=== PATIENT | female | born 1975 | race Caucasian/White ===

== ENCOUNTER 2022-05-08 09:38 | Emergency (ER) | payer MEDICAID, SELFPAY ==
--- NOTE | 2022-05-08 09:53 | ED.OVERDOSE ---
HPI - Overdose General Chief Complaint: Overdose Stated Complaint: unresponsive Time Seen by Provider: 05/08/22 09:39 Source: patient and EMS Mode of arrival: EMS Limitations: no limitations History of Present Illness HPI Narrative: 46-year-old female came in after was found unresponsive after using heroin. Patient admitted to use couple bags of heroin by sniffing, patient has not used heroin for many years and been sober and today was her 1st time after long time, patient was found unresponsive by her family called EMS initially CPR was shortly started before EMS arrival then was stopped, 4 mg of total Narcan was used intranasally and patient regained consciousness shortly after. On arrival patient is awake, alert, stable vital signs, patient declined SI or HI or hallucination. Related Data Allergies Allergy/AdvReac Type Severity Reaction Status Date / Time No Known Allergies Allergy Unverified 04/10/20 15:47 Review of Systems Review of Systems: All other systems are reviewed and are negative Constitutional: Reports as per HPI and Reports no additional constitutional complaints Eyes: Reports as per HPI and Reports no additional eye complaints Reports system reviewed and no additional complaints, except as documented Cardiovascular: Reports as per HPI and Reports no additional cardiovascular complaints Respiratory: Reports as per HPI and Reports no additional respiratory complaints Gastrointestinal: Reports as per HPI and Reports no additional gastrointestinal complaints Genitourinary: Reports no additional female genitourinary complaints Musculoskeletal: Reports no additional musculoskeletal complaints Skin/Breast: Reports system reviewed and no additional complaints, except as docu Psychiatric: Reports no additional psychiatric complaints Endocrine: Reports no additional endocrine complaints Hematologic/Lymphatic: Reports no additional hematologic/lymphatic complaints Allergic/Immunologic: Reports no additional allergic/immunologic complaints Reports system reviewed and no additional complaints, except as documented and Reports Abnormal speech present [facility] Social History Social History Patient Tobacco Use Status: Current everyday Tobacco user Advance Directives: No Advance Directives Information Provided: No Patient : No Physical Exam Vital Signs: Vital Signs: Last Vital Signs Temp 97.6 F 05/08/22 11:09 Pulse 78 05/08/22 11:09 Resp 16 05/08/22 11:09 BP 114/81 05/08/22 11:09 Pulse Ox 97 05/08/22 11:09 O2 Del Method 05/08/22 11:09 BMI result Body Mass Index 20.9 Vital signs have been reviewed as appeared to be correct. Blood pressure normal. Heart rate normal. Respiration rate normal. Temperature normal. Oxygen saturation normal. Appearance: Alert. Oriented X3. No acute distress. Head: Normal external exam. Normocephalic. Atraumatic. No Menjivar signs noted. No raccoon eyes noted Eyes: PERRLA. EOMI. Conjunctiva and sclera normal. Eyelids normal. ENT: TM's Normal. Pharynx normal. Uvula midline. Moist mucous membranes. No trismus noted. No drooling noted. No muffled voice noted. Neck: Normal inspection. Neck supple. FROM. No adenopathy. Thyroid Normal. No meningeal signs. No neck mass noted. CVS: Normal heart rate and rhythm. Heart sound normal. No murmurs noted. Pulses normal throughout. Respiratory: No respiratory distress. Painless inspiration. Breath sounds normal. No wheezes/rales/rhonchi noted. Chest nontender. No accessory muscle usage noted or decreased air movement noted. Abdomen: Soft and nontender. Bowel sounds normal in all 4 quadrants. No distention noted. No organomegaly noted. No visible injury noted. Back: No CVA tenderness. Full range of motion noted. Skin: Skin warm and dry. Normal skin color. Normal skin turgor. No rashes/lesions/lacerations noted. Extremities: No lower extremity edema. Extremities exhibit normal range of motion. Extremities nontender. Neuro: Oriented X 3. Cranial nerve exam: II-XII are grossly intact No motor deficit. No sensory deficit. Reflexes normal. Course Course Course Narrative: 46-year-old female brought in after overdosed on heroin non intentionally, no SI or HI. Patient now is awake, alert, oriented will discharge with Narcan to take home and a care team evaluation. Discharge Plan Discharge Clinical Impression: Substance abuse, Overdose Patient Disposition: Home, Self-Care Instructions: Polysubstance Abuse (ED)
[2022-05-08 09:55] VITALS: BP 105/69; BP 115/80; PULSE 63; PULSE 92; RESP 18; TEMP 36.7; O2SAT 100; O2SAT 98; BMI 20.9
--- OUTSIDE RECORDS SUMMARY | 2022-05-08 10:26 | XMS_ITS | Continuity of Care Document ---
:1975 Author Organization [facility] Address [address] [facility], 3rd Floor, [address] [place] [address]- Care Team Providers Name Role Phone Josh Boone MD Primary Care Physician Encounter [facility] Date(s): 09/26/19 - 10/06/19 [facility] [address], [address], [address] [place] [address]- [facility] Attending Physician: Lian Toledo Admitting Physician: Lian Toledo Referring Physician: AdmtrLian Allergies, Adverse Reactions, Alerts Substance Reaction Severity Status NKA Active Immunizations Given and Recorded Vaccine Date Status Refusal Reason tetanus-diphtheria toxoids (Td) 06/08/08 Given Not Given Vaccine Date Status Refusal Reason influenza virus vaccine, inactivated 06/16/19 Not Given Parent Or Guardian Refuses Medications acetaminophen 325 mg oral tablet 650 mg, 2, tablet, By Mouth, Every 6 hours, PRN, Refills 0, Maintenance, Pain , Moderate, 06/27/19 10:32:58 EST Start Date: 06/27/19 Status: Orderedbuprenorphine-naloxone 4 mg-1 mg sublingual film Sublingual, 2 times a day, 0 Refills, Maintenance, 06/27/19 10:32:42 EST, Film Start Date: 06/27/19 Status: OrderedFioricet Tablet 1 tablet, By Mouth, Every 4 hours, PRN Headache, 0 Refills, Maintenance, 06/27/19 10:33:00 EST, Tablet Start Date: 06/27/19 Status: Orderedfolic acid 1 mg oral tablet 1 mg, 1, tablet, By Mouth, Daily, Refills 0, Maintenance, 06/27/19 10:33:27 EST Start Date: 06/27/19 Status: OrderedLidoderm 5% film Topically, Daily, apply to area of pain in AM and remove 12 hrs later in PM., 0 Refills, Maintenance, 07/26/19 12:31:00 EST Start Date: 07/26/19 Status: Orderedthiamine 100 mg oral tablet 100 mg, 1, tablet, By Mouth, Daily, Refills 0, Maintenance, 06/27/19 10:34:02 EST Start Date: 06/27/19 Status: Ordered Problem List Condition Effective Dates Status Health Status Informant Alcohol dependence(Confirmed) Active Cellulitis(Confirmed) Active Episodic mood disorder(Confirmed) Active History of Heroin abuse, on Active suboxone(Confirmed) Hepatitis C(Confirmed) Active Social History Social History Type Response Smoking Status Former smoker, quit more dior n 30 days ago; Other: on patches; entered on: 08/08/19 Sex
--- OUTSIDE RECORDS SUMMARY | 2022-05-08 10:26 | XMS_ITS | Continuity of Care Document ---
:1975 Author Organization [facility] Address [address] [place] [address]- Care Team Providers Name Role Phone Josh Boone MD Primary Care Physician Encounter [facility] [id number] Date(s): 11/11/21 - 12/11/21 [facility] [address] [place] [address]- Allergies, Adverse Reactions, Alerts No Known Allergies Immunizations Given and Recorded Vaccine Date Status Refusal Reason tetanus-diphtheria toxoids (Td) 06/08/08 Given Not Given Vaccine Date Status Refusal Reason influenza virus vaccine, inactivated 06/16/19 Not Given Parent Or Guardian Refuses Medications amoxicillin 500 mg oral tablet 4 tablet = 2,000 mg, By Mouth, Once, 30 to 60 minutes prior to the procedure, # 4 tablet, 0 Refills,Soft Stop, 08/14/21 12:25:00 EST, Tablet, [id number], 180, cm, 06/09/21 13:41:00 EST, Height, 85.4, kg, 11/03/20 10:44:00 EDT, Dry Weight Start Date: 08/14/21 Status: Orderedamoxicillin 500 mg oral tablet 4 tablet = 2,000 mg, By Mouth, Once, 30 to 60 minutes prior to the procedure, # 4 tablet, 0 Refills,Soft Stop, 11/12/21 11:05:00 EDT, Tablet, [facility]/pharm[facility] #[id number], 180, cm, 06/09/21 13:41:00 EST, Height, 85.4, kg, 11/03/20 10:44:00 EDT, Dry Weight Start Date: 11/12/21 Status: Orderedbuprenorphine-naloxone 4 mg-1 mg sublingual film Sublingual, 2 times a day, 0 Refills, Maintenance, 06/27/19 10:32:42 EST, Film Start Date: 06/27/19 Status: Ordered Problem List Condition Effective Dates Status Health Status Informant Alcohol dependence(Confirmed) Active Cellulitis(Confirmed) Active Hx Stroke(Confirmed) Active History of Heroin abuse, on Active suboxone(Confirmed) Hepatitis C(Confirmed) Active Social History Social History Type Response Smoking Status Former smoker, quit more dior n 30 days ago entered on: 09/30/20 Sex
--- OUTSIDE RECORDS SUMMARY | 2022-05-08 10:26 | XMS_ITS | Continuity of Care Document ---
:1975 Author Organization [facility] Address [address] [place] [address]- Care Team Providers Name Role Phone Josh Boone MD Primary Care Physician Encounter [facility] Date(s): 04/01/20 - 04/08/20 [facility] [address] [place] [address]- Encounter Diagnosis Infective endocarditis of aortic valve (Discharge Diagnosis) - 04/01/20 SAH (subarachnoid hemorrhage) (Discharge Diagnosis) - 04/01/20 Attending Physician: Josh Boone MD Allergies, Adverse Reactions, Alerts Substance Reaction Severity [...] procedure, # 4 tablet, 0 Refills,Soft Stop, 03/28/20 8:23:00 EDT, Tablet, [id number], 180, cm, 03/20/20 10:17:00 EDT, Height,60, kg, 06/13/19 15:20:00 EST, Dry Weight Start Date: 03/28/20 Status: Orderedbuprenorphine-naloxone 4 mg-1 mg sublingual film Sublingual, 2 times a day, 0 Refills, Maintenance, 06/27/19 10:32:42 EST, Film Start Date: 06/27/19 Status: Ordered Problem List Condition Effective Dates Status Health Status Informant Alcohol dependence(Confirmed) Active Cellulitis(Confirmed) Active Episodic mood disorder(Confirmed) Active History of Heroin abuse, on Active suboxone(Confirmed) Hepatitis C(Confirmed) Active Diagnosis Diagnosis Type Effective Dates Health Clinical Infor mant Status Service Infective Discharge 04/01/20 endocarditis of Diagnosis aortic valve SAH (subarachnoid Discharge 04/01/20 hemorrhage) Diagnosis Vital Signs Most recent to oldest [Reference Range]: 1 Height 180 cm (04/01/20 3:24 PM) Weight 76.7 kg (04/01/20 3:24 PM) Oxygen Saturation [94-100 %] 98 % (04/01/20 3:24 PM) Pulse Rate [55-90 bpm] 55 bpm (04/01/20 3:24 PM) Body Mass Index [18.5-24.99] 23.67 (04/01/20 3:24 PM) Blood Pressure [90-138/55-84 mm Hg] 132/80 mm Hg (04/01/20 3:24 PM) Liters per Minute 0 L/min (04/01/20 3:24 PM) Mode of Delivery (Oxygen) Room air (04/01/20 3:24 PM) Blood pressure sites Arm, left (04/01/20 3:24 PM) Weight Obtained Via Standing scale (04/01/20 3:24 PM) Social History Social History Type Response Smoking Status Former smoker, quit more dior n 30 days ago; Previous treatment: Nicotine replacement entered on: 04/01/20 Sex
--- OUTSIDE RECORDS SUMMARY | 2022-05-08 10:26 | XMS_ITS | Continuity of Care Document ---
:1975 Author Organization [facility] Address [address] [place] [address]- Care Team Providers Name Role Phone Josh Boone MD Primary Care Phys[id number] Date(s): 11/29/19 - 12/06/19 [facility] [address] [place] [address]- [facility] Encounter Diagnosis Infective endocarditis of aortic valve (Discharge Diagnosis) - 11/29/19 SAH (subarachnoid hemorrhage) (Discharge Diagnosis) - 11/29/19 History of Heroin abuse, on suboxone (Discharge Diagnosis) - 11/29/19 Attending Physician: Josh Boone MD Allergies, Adverse [...] Clinical Infor mant Status Service Infective Discharge 11/29/19 endocarditis of Diagnosis aortic valve SAH (subarachnoid Discharge 11/29/19 hemorrhage) Diagnosis History of Heroin Discharge 11/29/19 abuse, on suboxone Diagnosis Social History Social History Type Response Smoking Status Former smoker, quit more dior n 30 days ago; Other: on patches; entered on: 08/08/19 Sex
--- OUTSIDE RECORDS SUMMARY | 2022-05-08 10:26 | XMS_ITS | Continuity of Care Document ---
:1975 Author Organization [facility] Address [address] [place] [address]- Care Team Providers Name Role Phone Josh Boone MD Primary Care Physician Encounter [facility] Date(s): 05/14/20 - 08/14/20 [facility] [address] [place], [place] [address] Attending Physician: Josh Boone MD Allergies, Adverse Reactions, Alerts Substance Reaction Severity Status NKA Active Immunizations Given and Recorded Vaccine Date Status Refusal Reason tetanus-diphtheria toxoids (Td) 06/08/08 Given Not Given Vaccine Date Status Refusal Reason influenza virus vaccine, inactivated 06/16/19 Not Given Parent Or Guardian Refuses Medications amoxicillin 500 mg oral tablet See Instructions, Take 4 tablets, by mouth, once, 30 to 60 minutes prior to the procedure, # 4 tablet, 0 Refills, Maintenance, 08/07/20 12:43:00 EST, Tablet, [facility]/pharmacy #[id number], Partial fill upon patient request if the prescription is for a schedule I... Start Date: 08/07/20 Status: Orderedamoxicillin 500 mg oral tablet 4 tablet = 2,000 mg, By Mouth, Once, 30 to 60 minutes prior to the procedure, # 4 tablet, 0 Refills,Soft Stop, 05/09/20 16:49:00 EDT, Tablet, [id number], 180, cm, 04/01/20 15:24:00 EDT, Height, 60, kg, 06/13/19 15:20:00 EST, Dry Weight Start Date: 05/09/20 Status: Orderedbuprenorphine-naloxone 4 mg-1 mg sublingual film Sublingual, 2 times a day, 0 Refills, Maintenance, 06/27/19 10:32:42 EST, Film Start Date: 12/4/19 Status: Ordered Problem List Condition Effective Dates Status Health Status Informant Alcohol dependence(Confirmed) Active Cellulitis(Confirmed) Active Episodic mood disorder(Confirmed) Active History of Heroin abuse, on Active suboxone(Confirmed) Hepatitis C(Confirmed) Active Social History Social History Type Response Smoking Status Former smoker, quit more dior n 30 days ago; Previous treatment: Nicotine replacement entered on: 04/01/20 Sex
--- OUTSIDE RECORDS SUMMARY | 2022-05-08 10:26 | XMS_ITS | Continuity of Care Document ---
:1975 Author Organization [employer] [facility] Address [address] [place] [address]- Care Team Providers Name Role Phone Josh Boone MD Primary Care Physician Encounter [facility] Date(s): 08/08/19 - 08/15/[address] [facility] [address] [place] [address]- [facility] Encounter Diagnosis Infective endocarditis of aortic valve (Discharge Diagnosis) - 08/08/19 SAH (subarachnoid hemorrhage) (Discharge Diagnosis) - 08/08/19 Streptococcus viridans infection (Discharge Diagnosis) - 08/08/19 History of Heroin abuse, on suboxone (Discharge Diagnosis) - 08/08/19 Alcohol dependence (Discharge Diagnosis) - 08/08/19 Tobacco abuse (Discharge Diagnosis) - 08/08/19 Attending Physician: Josh Boone MD Allergies, Adverse [...] 07/26/19 12:31:00 EST Start Date: 07/26/19 Status: OrderedNicotine = 14 mg, Topically, Daily, 0 Refills, Maintenance, 06/27/19 10:33:56 EST, Patch Start Date: 06/27/19 Status: Orderednicotine 21 mg/24 hr transdermal film, extended release 1 patch, Topically, Daily, for 14 days, Do not smoke when the patch is on, # 14 patch, 0 Refills, Acute 08/22/19 10:26:00 EST, 08/08/19 10:26:00 EST, Patch, [facility]/pharmacy #[id number], 1 patch Topically Daily,x14 days,Instr:Do not smoke when the patch is on,... Start Date: 08/08/19 Stop Date: 08/22/19 Status: Orderedthiamine 100 mg oral tablet 100 [...] Clinical Infor mant Status Service Infective Discharge 08/08/19 endocarditis of Diagnosis aortic valve SAH (subarachnoid Discharge 08/08/19 hemorrhage) Diagnosis Streptococcus Discharge 08/08/19 viridans infection Diagnosis History of Heroin Discharge 08/08/19 abuse, on suboxone Diagnosis Alcohol dependence Discharge 08/08/19 Diagnosis Tobacco abuse Discharge 08/08/19 Diagnosis Vital Signs Most recent to oldest [Reference Range]: 1 Height 180 cm (08/08/19 9:54 AM) Weight 67.8 kg (08/08/19 9:54 AM) Oxygen Saturation [94-100 %] 97 % (08/08/19 9:54 AM) Pulse Rate [55-90 bpm] 73 bpm (08/08/19 9:54 AM) Body Mass Index [18.5-24.99] 20.93 (08/08/19 9:54 AM) Blood Pressure [90-138/55-84 mm Hg] 100/70 mm Hg (08/08/19 9:54 AM) Liters per Minute 0 L/min (08/08/19 9:54 AM) Mode of Delivery (Oxygen) Room air (08/08/19 9:54 AM) Blood pressure sites Arm, right (08/08/19 9:54 AM) Weight Obtained Via Standing scale (08/08/19 9:54 AM) Social History Social History Type Response Smoking Status Former smoker, quit more dior n 30 days ago; Other: on patches; entered on: 08/08/19 Sex
--- OUTSIDE RECORDS SUMMARY | 2022-05-08 10:26 | XMS_ITS | Continuity of Care Document ---
:1975 Author Organization [facility] Address [address] [place] [address]- Care Team Providers Name Role Phone Josh Boone MD Primary Care Phys[id number] Date(s[facility] 01/12/20 - 05/01/20 [facility] [address] [place] [address]- [facility] Attending Physician: Josh Boone MD Allergies, Adverse [...]
--- OUTSIDE RECORDS SUMMARY | 2022-05-08 10:26 | XMS_ITS | Continuity of Care Document ---
:1975 Author Organization [facility] n Address [address] [address]- Care Team Providers Name Role Phone Josh Boone MD Primary Care Physician Encounter [facility] Date(s): 04/17/20 - 05/17/20 [facility] [address] [place] [address]- [facility] Attending Physician: Lian Toledo Admitting Physician: Lian [...]
--- OUTSIDE RECORDS SUMMARY | 2022-05-08 10:26 | XMS_ITS | Continuity of Care Document ---
:1975 Author Organization [facility] Address [address] [place] [address]- Care Team Providers Name Role Phone Josh Boone MD Primary Care Physician Encounter [facility] Date(s): 02/11/20 - 03/12/20 [facility] [address] [place] [address]- Allergies, Adverse Reactions, Alerts Substance Reaction Severity [...] 06/27/19 10:32:58 EST Start Date: 06/27/19 Status: Orderedamoxicillin 500 mg oral tablet 4 tablet = 2,000 mg, By Mouth, Once, 30 to 60 minutes prior to the procedure, # 4 tablet, 0 Refills,Soft Stop, 02/11/20 13:48:00 EDT, Tablet, [facility]/pharmacy #[id number], 180, cm, 09/26/19 16:36:00 EST, Height, 60, kg, 06/13/19 15:20:00 EST, Dry Weight Start Date: 02/11/20 Status: Orderedbuprenorphine-naloxone 4 mg-1 mg sublingual film [...]
--- OUTSIDE RECORDS SUMMARY | 2022-05-08 10:26 | XMS_ITS | Continuity of Care Document ---
:1975 Author Organization [facility] n Address [address] [address]- Care Team Providers Name Role Phone oJsh Boone MD Primary Care Physician Encounter [facility] ACCT R [id number] Date(s): 03/20/20 - 05/03/20 [facility] [address] [address] [place] Attending Physician: Gunnar BRANTLEY, Adrian Longoria Admitting Physician: Gunnar BRANTLEY, Adrian Longoria Referring Physician: Gunnar BRANTLEY, Adrian Longoria Allergies, Adverse Reactions, Alerts Substance Reaction Severity [...]
--- OUTSIDE RECORDS SUMMARY | 2022-05-08 10:26 | XMS_ITS | Continuity of Care Document ---
:1975 Author Organization [facility] [place] Address [address] [place] [address]- Care Team Providers Name Role Phone Josh Boone MD Primary Care Physician Encounter [facility] Date(s): 03/20/20 - 04/19/[address] [address] [facility] Attending Physician: Lian Toledo Admitting Physician: Lian Toledo Referring Physician: Lian Toledo Allergies, Adverse Reactions, Alerts Substance Reaction Severity [...]
--- OUTSIDE RECORDS SUMMARY | 2022-05-08 10:26 | XMS_ITS | Continuity of Care Document ---
:1975 Author Organization [facility] Address [address] [place] [address]- Care Team Providers Name Role Phone Josh Boone MD Primary Care Physician Encounter [facility] NBR [id number] Date(s): 11/29/19 - 12/29/19 [facility] [address] [place] [address]- [facility] Attending Physician: Lian Toledo Admitting [...]
--- OUTSIDE RECORDS SUMMARY | 2022-05-08 10:26 | XMS_ITS | Continuity of Care Document ---
:1975 Author Organization [facility] n Address [address] [address]- Care Team Providers Name Role Phone Josh Boone MD Primary Care Physician Encounter [facility] ACCT R [id number] Date(s): 04/17/20 - 04/24/20 [facility] [address] [address]- [place] Attending Physician: Gunnar BRANTLEY, Adrian Longoria Admitting Physician: Gunnra BRANTLEY, Adrian Longoria Referring Physician: Gunnar BRANTLEY, [...]
--- OUTSIDE RECORDS SUMMARY | 2022-05-08 10:26 | XMS_ITS | Continuity of Care Document ---
:1975 Author Organization [employer] [facility] Address [address] [place] [address]- Care Team Providers Name Role Phone Josh Boone MD Primary Care Physician Encounter [facility] Date(s): 06/29/19 - 08/31/19 [facility] [address] [place] [address]- [facility] Attending Physician: Josh Boone MD Allergies, Adverse [...] 07/26/19 12:31:00 EST Start Date: 07/26/19 Status: Orderednicotine 14 mg/24 hr transdermal film, extended release 1 patch, Topically, Daily, for 14 days, # 14 patch, 0 Refills, Acute 09/13/19 17:18:00 EST, 08/30/2016:18:00 EST, Patch, [id number], 1 patch Topically Daily,x14 days, 180, cm, 08/08/19 9:54:00EST, Height, 60, kg, 06/13/19 15:20:00 EST, Dry W... Start Date: 08/30/19 Stop Date: 09/13/19 Status: Orderedthiamine 100 mg oral tablet 100 [...]
--- OUTSIDE RECORDS SUMMARY | 2022-05-08 10:26 | XMS_ITS | Continuity of Care Document ---
:1975 Author Organization [facility] Address [address] [place] [address]- Care Team Providers Name Role Phone Josh Boone MD Primary Care Physician Encounter [facility] [id number] Date(s): 10/29/21 - 11/28/21 [facility] [address] [place] [id number]- Allergies, Adverse Reactions, Alerts No Known Allergies [...] 0 Refills,Soft Stop, 08/14/21 12:25:00 EST, Tablet, [facility]/pharmacy #[id number], 180, cm, 06/09/21 13:41:00 EST, Height, 85.4, kg, 11/03/20 10:44:00 EDT, Dry Weight Start Date: 08/14/21 Status: Orderedamoxicillin 500 mg oral tablet 4 tablet = 2,000 mg, By Mouth, Once, 30 to 60 minutes prior to the procedure, # 4 tablet, 0 Refills,Soft Stop, 11/12/21 11:05:00 EDT, Tablet, [facility]/pharmacy #[id number], 180, cm, 06/09/21 13:41:00 EST, Height, [...]
--- OUTSIDE RECORDS SUMMARY | 2022-05-08 10:26 | XMS_ITS | Continuity of Care Document ---
:1975 Author Organization [facility] n Address [address] [address]- Care Team Providers Name Role Phone Josh Boone MD Primary Care Physician Encounter [facility] ACCT R [id number] Date(s): 04/03/20 - 05/14/20 [facility] [address] [address]- [place] Attending Physician: Gunnar BRANTLEY, Adrian Longoria [...]
--- OUTSIDE RECORDS SUMMARY | 2022-05-08 10:27 | XMS_ITS | Continuity of Care Document ---
:1975 Author Organization [facility] Address [address] [place] [address]- Care Team Providers Name Role Phone Josh Boone MD Primary Care Physician Encounter [facility] Date(s): 05/14/21 - 06/13/21 [facility] [address] [address]- Attending Physician: Lian Toledo Admitting Physician: Lian Toledo Referring Physician: Lian Toledo Allergies, Adverse Reactions, Alerts Substance Reaction Severity Status NKA Active Immunizations Given and Recorded Vaccine Date Status Refusal Reason tetanus-diphtheria toxoids (Td) 06/08/08 Given Not Given Vaccine Date Status Refusal Reason influenza virus vaccine, inactivated 06/16/19 Not Given Parent Or Guardian Refuses Medications buprenorphine-naloxone 4 mg-1 mg sublingual film Sublingual, 2 [...]
--- OUTSIDE RECORDS SUMMARY | 2022-05-08 10:27 | XMS_ITS | Continuity of Care Document ---
:1975 Author Organization [facility] Address [address] [place] [address]- Care Team Providers Name Role Phone Josh Boone MD Primary Care Physician Encounter [facility] Date(s): 10/28/20 - 11/27/20 [facility] [address] [place] [id number] Allergies, Adverse Reactions, Alerts Substance Reaction Severity [...]
--- OUTSIDE RECORDS SUMMARY | 2022-05-08 10:27 | XMS_ITS | Continuity of Care Document ---
:1975 Author Organization [facility] Address [address] [place] [address]- Care Team Providers Name Role Phone Josh Boone MD Primary Care Physician Encounter [facility] [id number] Date(s): 04/01/20 - 05/01/20 [facility] [address] [place] [address]- [facility] Attending Physician: Lian Toledo Admitting Physician: Lian Toledo Referring Physician: trLian Allergies, Adverse Reactions, Alerts Substance Reaction Severity [...]
--- OUTSIDE RECORDS SUMMARY | 2022-05-08 10:27 | XMS_ITS | Continuity of Care Document ---
:1975 Author Organization [facility] Address [address] [place] [address]- Care Team Providers Name Role Phone Josh Boone MD Primary Care Physician [facility] Date(s): 07/21/20 - 08/20/20 [facility] [address] [place] [id number] Allergies, Adverse Reactions, Alerts Substance Reaction Severity [...] 0 Refills, Maintenance, 08/07/20 12:43:00 EST, Tablet, [facility]/pharmacy #[id number], Partial fill upon patient request if [...]
--- OUTSIDE RECORDS SUMMARY | 2022-05-08 10:27 | XMS_ITS | Continuity of Care Document ---
:1975 Author Organization [facility] Address [address] [place] [address]- Care Team Providers Name Role Phone Josh Boone MD Primary Care Physician Encounter [facility] Date(s): 07/23/19 - 08/02/19 [facility] [address] [place] [address] [facility] Attending Physician: Lian Toledo Admitting Physician: Lian [...] 10:32:42 EST, Film Start Date: 06/27/19 Status: Ordereddocusate sodium 100 mg oral capsule 100 mg, 1, capsule, By Mouth, 2 times a day, PRN, Refills 0, Maintenance, Constipation, 06/27/19 10:33:25 EST Start Date: 06/27/19 Status: OrderedFioricet Tablet 1 tablet, By Mouth, Every 4 hours, PRN Headache, 0 Refills, Maintenance, 06/27/19 10:33:00 EST, Tablet Start Date: 06/27/19 Status: Orderedfolic acid 1 mg oral tablet 1 mg, 1, tablet, By Mouth, Daily, Refills 0, Maintenance, 06/27/19 10:33:27 EST Start Date: 06/27/19 Status: Orderedgabapentin 300 mg oral capsule 300 mg, 1, capsule, By Mouth, 3 times a day, Refills 0, Maintenance, 06/27/19 10:33:28 EST Start Date: 06/27/19 Status: OrderedLidoderm 5% film Topically, Daily, apply to area of pain in AM and remove 12 hrs later in PM., 0 Refills, Maintenance, 07/26/19 12:31:00 EST Start Date: 07/26/19 Status: OrderedMilk of Magnesia Liquid 30 mL, By Mouth, 2 times a day, PRN Constipation, 0 Refills, Maintenance, 06/27/19 10:33:49 EST, Suspension Start Date: 06/27/19 Status: OrderedNicotine = 14 mg, Topically, Daily, 0 Refills, Maintenance, 06/27/19 10:33:56 EST, Patch Start Date: 06/27/19 Status: Orderedthiamine 100 mg oral tablet 100 mg, 1, tablet, By Mouth, Daily, Refills 0, Maintenance, 06/27/19 10:34:02 EST Start Date: 06/27/19 Status: Ordered Problem List Condition Effective Dates Status Health Status Informant Alcohol dependence(Confirmed) Active Cellulitis(Confirmed) Active Episodic mood disorder(Confirmed) Active History of Heroin abuse, on Active suboxone(Confirmed) Hepatitis C(Confirmed) Active Social History Social History Type Response Smoking Status Current every day smoker; To bacco user in household: No; Type: Cigarettes; Previous treatment: Medications; Interested in cessation: Yes; Tobacco use times per day: 1/2 ppd trying to quit; Started at age: 12; Cessation attempts: 1; entered on: 10/11/17 Sex
--- OUTSIDE RECORDS SUMMARY | 2022-05-08 10:27 | XMS_ITS | Continuity of Care Document ---
:1975 Author Organization [facility] Address [address] [place] [address]- Care Team Providers Name Role Phone Josh Boone MD Primary Care Physician Encounter [facility] Date(s): 09/30/20 - 10/30/20 [facility] [address] [place] [id number] Attending Physician: Lian Toledo Admitting Physician: Lian [...] procedure, # 4 tablet, 0 Refills, Maintenance, 10/28/20 9:51:00 EDT, Tablet, [facility]/pharmacy #[id number], Partial fill upon patient request if the prescription is for a schedule II... Start Date: 10/28/20 Status: Orderedamoxicillin 500 mg oral tablet 4 tablet = 2,000 mg, By Mouth, Once, 30 to 60 minutes prior to the procedure, # 4 tablet, 0 Refills,Soft Stop, 05/09/20 16:49:00 EDT, Tablet, [facility]/pharmacy #[id number], 180, cm, 04/01/20 15:24:00 EDT, Height, 60, kg, 06/13/19 15:20:00 EST, Dry Weight Start Date: 05/09/20 Status: Orderedbuprenorphine-naloxone 4 mg-1 mg sublingual film Sublingual, 2 times a day, 0 Refills, Maintenance, 06/27/19 10:32:42 EST, Film Start Date: 06/27/19 Status: Ordered Problem List Condition Effective Dates Status Health Status Informant Alcohol dependence(Confirmed) Active Cellulitis(Confirmed) Active History of Heroin abuse, on Active suboxone(Confirmed) Hepatitis C(Confirmed) Active Social History Social History Type Response Smoking Status Former smoker, quit more dior n 30 days ago entered on: 09/30/20 Sex
--- OUTSIDE RECORDS SUMMARY | 2022-05-08 10:27 | XMS_ITS | Continuity of Care Document ---
:1975 Author Organization [facility] Address [address] [place] [address]- Care Team Providers Name Role Phone Josh Boone MD Primary Care Physician Encounter [facility] Date(s): 09/15/20 - 10/15/20 [facility] [address] [place], [place] [address] Attending Physician: Lian Toledo Admitting Physician: Lian [...] 0 Refills, Maintenance, 08/07/20 12:43:00 EST, Tablet, [facility]/pharmacy #[id number], Partial fill upon patient request if the prescription is for a schedule I... Start Date: 08/07/20 Status: Orderedamoxicillin 500 mg oral tablet 4 tablet = 2,000 mg, By Mouth, Once, 30 to 60 minutes prior to the procedure, # 4 tablet, 0 Refills,Soft Stop, 05/09/20 16:49:00 EDT, Tablet, [facility]/pharmacy #[id number], 180, cm, 04/01/20 15:24:00 EDT, Height, [...]
--- OUTSIDE RECORDS SUMMARY | 2022-05-08 10:27 | XMS_ITS | Continuity of Care Document ---
:1975 Author Organization [facility] Address [address] [place] [address]- Care Team Providers Name Role Phone Josh Boone MD Primary Care Physician Encounter [facility] [id number] Date(s): 08/07/21 - 09/06/21 [facility] [address] [place] [address]- Allergies, Adverse Reactions, Alerts No Known Allergies [...] procedure, # 4 tablet, 0 Refills,Soft Stop, 08/07/21 11:48:00 EST, Tablet, [id number], 180, cm, 06/09/21 13:41:00 EST, Height, 85.4, kg, 11/03/20 10:44:00 EDT, Dry Weight Start Date: 08/07/21 Status: Orderedamoxicillin 500 mg oral tablet 4 tablet = 2,000 mg, By Mouth, Once, 30 to 60 minutes prior to the procedure, # 4 tablet, 0 Refills,Soft Stop, 08/14/21 12:25:00 EST, Tablet, [id number], 180, cm, 06/09/21 13:41:00 EST, Height, 85.4, kg, 11/03/20 10:44:00 EDT, Dry Weight Start Date: 08/14/21 Status: Orderedbuprenorphine-naloxone 4 mg-1 mg sublingual film [...]
--- OUTSIDE RECORDS SUMMARY | 2022-05-08 10:27 | XMS_ITS | Continuity of Care Document ---
:1975 Author Organization [facility] Address [address] [place] [address]- Care Team Providers Name Role Phone Josh Boone MD Primary Care Physician Encounter [facility] Date(s): 11/07/21 - 03/07/22 [facility] [address] [place], [place] [address] Attending Physician: Adrian Maher MD Allergies, Adverse Reactions, Alerts No Known Allergies [...] 0 Refills,Soft Stop, 08/14/21 12:25:00 EST, Tablet, [facility]/pharmacy #[id number], 180, cm, 06/09/21 13:41:00 EST, Height, 85.4, kg, 11/03/20 10:44:00 EDT, Dry Weight Start Date: 08/14/21 Status: Orderedamoxicillin 500 mg oral tablet 4 tablet = 2,000 mg, By Mouth, Once, 30 to 60 minutes prior to the procedure, # 4 tablet, 0 Refills,Soft Stop, 02/10/22 12:43:00 EDT, Tablet, [facility]/pharmacy #[id number], 180, cm, 06/09/21 13:41:00 EST, Height, 85.4, kg, 11/03/20 10:44:00 EDT, Dry Weight Start Date: 02/10/22 Status: Orderedbuprenorphine-naloxone 4 mg-1 mg sublingual film [...]
--- OUTSIDE RECORDS SUMMARY | 2022-05-08 10:27 | XMS_ITS | Continuity of Care Document ---
:1975 Author Organization [facility] Address [address] [place] [address]- Care Team Providers Name Role Phone Josh Boone MD Primary Care Physician Encounter [facility] Date(s): 05/14/21 - 05/21/[address] [address]- Attending Physician: Gunnar BRANTLEY, Adrian Longoria Admitting [...]
--- OUTSIDE RECORDS SUMMARY | 2022-05-08 10:27 | XMS_ITS | Continuity of Care Document ---
:1975 Author Organization [facility] Address [address] [place] [address]- Care Team Providers Name Role Phone Josh Boone MD Primary Care Physician Encounter [facility] Date(s): 03/27/20 - 04/26/20 [facility] [address] [place] [address]- Allergies, Adverse Reactions, Alerts Substance Reaction Severity [...]
--- OUTSIDE RECORDS SUMMARY | 2022-05-08 10:27 | XMS_ITS | Continuity of Care Document ---
:1975 Author Organization [facility] Address [address] [place] [address]- Care Team Providers Name Role Phone Josh Boone MD Primary Care Physician Encounter [facility] Date(s): 09/30/20 - 10/07/20 [facility] [address] [place], [place] [address] Encounter Diagnosis Aortic valve endocarditis (Discharge Diagnosis) - 09/30/20 History of Heroin abuse, on suboxone (Discharge Diagnosis) - 09/30/20 Alcohol dependence (Discharge Diagnosis) - 09/30/20 Attending Physician: Josh Boone MD Allergies, Adverse [...] 0 Refills, Maintenance, 08/07/20 12:43:00 EST, Tablet, [facility]/pharmacy #[id number], Partial fill upon patient request [...] Dates Health Clinical Infor mant Status Service Aortic valve Discharge 09/30/20 endocarditis Diagnosis History of Heroin Discharge 09/30/20 abuse, on suboxone Diagnosis Alcohol dependence Discharge 09/30/20 Diagnosis Vital Signs Most recent to oldest [Reference Range]: 1 Height 180 cm (09/30/20 2:37 PM) Social History Social History Type Response Smoking Status Former smoker, quit more dior n 30 days ago entered on: 09/30/20 Sex
--- OUTSIDE RECORDS SUMMARY | 2022-05-08 10:27 | XMS_ITS | Continuity of Care Document ---
:1975 Author Organization [facility] Address [address] [place] [address]- Care Team Providers Name Role Phone Josh Boone MD Primary Care Physician Encounter [facility] Date(s): 02/05/22 - 03/07/[address] [address] Attending Physician: Lian Toledo Admitting Physician: Lian Toledo Referring Physician: Admtr, [id number] Allergies, Adverse Reactions, Alerts No Known Allergies [...] 0 Refills,Soft Stop, 02/10/22 12:43:00 EDT, Tablet, [id number], 180, cm, 06/09/21 13:41:00 [...]
[2022-05-08 11:09] VITALS: BP 114/81; PULSE 78; RESP 16; TEMP 36.4; O2SAT 97
--- NOTE | 2022-05-08 11:12 | PC.NURSE ---
patient a/ox4 . bekah . heart rate regular at 99 . lungs clear . breathing even and unlabored . skin moist , pink and warm . abdomen soft , non tender and positive for bowel sounds . patient reports having been on Suboxone for the last 8 years and tapered herself off of it over the last few weeks and today woke up feeling tired and overwhelmed with life and chose to snort a bag of heroin .patient then walked to her kitchen started her coffee and immediately had a syncope episode that she became unresponsive . EMS was called and she received 4 of Narcan . She currently is weepy has no SI or HI . Patient also reports drinking vodka and wine daily . Patient has changed into hospital attire and been put on traffic monitor specialist . Care team has been at bedside for evaluation . patient aware of plan of care .
--- NOTE | 2022-05-08 12:14 | HO.SUDE ---
SUDE Patient is a 46 year old Kitt[place] speaking female who presented to [facility] ED after an accidental overdose. This underwriter mortgage loan met with patient to offer support. Patient reported she has been trying to get off Suboxone but her clinic is not assisting her in this. Family member came into the room and patient became tearful and requested this underwriter mortgage loan leave. This underwriter mortgage loan attempted consult later on with family in the room and patient declined. Encouraged patient to inform staff if she would like to discuss her substance use further.
[2022-05-08] MEDS: Naloxone HCl Nasal TAKE HOME 4 MG SPRAY NOSTRILALT (12:32)
[2022-05-08 12:33] VITALS: BP 112/67; PULSE 91; RESP 16; TEMP 36.7; O2SAT 98
--- NOTE | 2022-05-08 12:36 | PC.NURSE ---
patient a/ox4 . breathing even and unlabored . vss . went over discharge instructions as ordered by provider . patient educated on given narcan to go in case of over dose . patient has meet with care team prior to discharge and given follow up contact information . patient has no questions at this time .
== END 2022-05-08 12:38 | disposition home or self-care (01) ==
PROVIDERS: Emergency Provider Emergency Medicine
DX: T40.1X1A Poisoning by heroin, accidental (unintentional), initial encounter (principal); R40.4 Transient alteration of awareness; F19.10 Other psychoactive substance abuse, uncomplicated; Y92.019 Unspecified place in single-family (private) house as the place of occurrence of the external cause
CPT/HCPCS: 99284